=== PATIENT | male | born 1995 ===

== ENCOUNTER 2023-10-25 15:17 | Outpatient (CLI) | payer OTHER, SELFPAY | END 2023-10-25 15:18 | disposition home or self-care (01) | LOC: AMB 11-06 06:20 | PROVIDERS: Visit Provider Emergency Medicine | DX: R55 Syncope and collapse (principal); S09.90XA Unspecified injury of head, initial encounter; W18.39XA Other fall on same level, initial encounter; Y92.59 Other trade areas as the place of occurrence of the external cause | CPT/HCPCS: A0998 ==